=== PATIENT | male | born 1940 | race Caucasian/White ===

== ENCOUNTER 2022-08-23 16:35 | Outpatient (CLI) | payer OTHER, MEDICARE | END 2022-08-23 16:36 | disposition EMS.NT | LOC: EMS 16:35 | DX: Z04.1 Encounter for examination and observation following transport accident (principal) ==

== ENCOUNTER 2022-10-19 10:03 | Emergency (ER) | payer BC, MEDICARE, OTHER ==
--- NOTE | 2022-10-19 10:35 | ED Physician Documentation ---
PD HPI DYSPNEA - Stated complaint Stated Complaint: SOA,COUGHING - Chief complaint Chief Complaint: Resp - History obtained from History obtained from: Patient, Family - History of Present Illness Timing - onset: Today Timing - onset during: Light activity (history of asthma and typically has exac during summer months due to environmental allergies. No recent URI. Has had some wheezing recently. Worse abruptly this AM without obvious provocation.) Timing - details: Abrupt onset, Still present Inciting event(s): No: Out of meds, URI, Immobilization/travel Improved by: No: Inhaler/neb (he was unable to use his MDI due to inability to take breaths. Has MDI without spacer.) Worsened by: Exertion, Coughing Associated symptoms: Cough, Wheezing. No: Fever, Chest pain / discomfort, Bilateral edema Similar symptoms before: Diagnosis (asthma) Recently seen: Not recently seen Review of Systems Constitutional: denies: Fever, Chills, Myalgias Nose: reports: Congestion. denies: Rhinorrhea / runny nose Throat: denies: Sore throat Cardiac: denies: Chest pain / pressure, Palpitations, Pedal edema, Calf pain Respiratory: reports: Dyspnea, Cough, Wheezing GI: denies: Vomiting, Diarrhea Skin: denies: Rash, Lesions Neurologic: reports: Generalized weakness. denies: Near syncope PD PAST MEDICAL HISTORY - Past Medical History Past Medical History: Yes Cardiovascular: Hypertension Respiratory: Asthma GI: GERD : Benign prostate hypertrophy - Past Surgical History Past Surgical History: No - Present Medications Home Medications: Ambulatory Orders Medication Instructions Recorded Confirmed Albuterol Sulfate [Proair 1 - 2 puffs IH Q4HR PRN 10/19/22 10/19/22 Respiclick] Amox/Clav 875/125 [Augmentin] 1 each PO BID #10 tablet 10/19/22 Atenolol [Tenormin] 50 mg PO DAILY 10/19/22 10/19/22 Beclomethasone 80 Mcg [Qvar 80] 1 puffs INH BID 50 Days #8.7 gm 10/19/22 Beclomethasone Dipropionate [Qvar 2 puffs INH BID 10/19/22 10/19/22 Redihaler (40 mcg)] Omeprazole Magnesium 20 mg PO BID 10/19/22 10/19/22 dexAMETHasone [Decadron] 4 mg PO DAILY #5 tablet 10/19/22 - Allergies Allergies/Adverse Reactions: Allergies Allergy/AdvReac Type Severity Reaction Status Date / Time No Known Drug Allergies Allergy Verified 10/19/22 10:14 - Social History Does the pt smoke?: No Smoking Status: Never smoker Does the pt drink ETOH?: No Does the pt have substance abuse?: No PD ED PE NORMAL - Vitals Vital signs reviewed: Yes (initial sats 88% on RA. ) - General General: Alert and oriented X 3, Well developed/nourished, Other (having work of breathing with partial sentence dyspnea. Does not appear tired. ) - HEENT HEENT: Pharynx benign - Neck Neck: Supple, no meningeal sign, No adenopathy - Cardiac Cardiac: RRR, No murmur - Respiratory Respiratory: No: Clear bilaterally (no coarse sounds. Has diffuse wheezing and prolonged expiratory phase. No fine crackles. ) - Abdomen Abdomen: Soft, Non tender - Derm Derm: Normal color, Warm and dry, No rash - Extremities Extremities: No tenderness to palpate, Normal ROM s pain, No edema, No calf tenderness / cord - Neuro Neuro: Alert and oriented X 3, No motor deficit, Normal speech Results - Vitals Vitals: Oxygen O2 Source Room air PD Medical Decision Making - ED course Complexity details: reviewed results (I was going to get chest xray but patient declined, not wanting the radiation exposure. His lungs are clearer after neb and I feel it is okay to not get one. ), re-evaluated patient (His breathing is much improved after nebs x 2. Given asthma exac, will also add oral steroids and antibiotic. ), considered differential, d/w patient Drug Therapy Requiring Monitoring for Toxicity: given nebulizer x 2 without any excess tachycardia. Had improved breathing work and sats. Departure - Departure Disposition: 01 Home, Self Care Clinical Impression: Cough, Dyspnea Exacerbation of asthma Qualifiers: Asthma severity: mild Asthma persistence: intermittent Qualified Code(s): J45.21 - Mild intermittent asthma with (acute) exacerbation Condition: Stable Record reviewed to determine appropriate education?: Yes Prescriptions: Amox/Clav 875/125 [Augmentin] 1 each PO BID #10 tablet dexAMETHasone [Decadron] 4 mg PO DAILY #5 tablet Beclomethasone 80 Mcg [Qvar 80] 1 puffs INH BID 50 Days #8.7 gm Comments: Continue with your albuterol inhaler 2 to 3 puffs 4 times daily regularly for the next week or so. Then to as needed. Also take dexamethasone steroid daily for the next 5 days and after that change to the Qvar inhaler twice daily for the next 1 to 2 months during the "hayfever" time of year. With this exacerbation, there be concern for infection as well so take the Augmentin antibiotic twice daily for 5 more days. I sent your prescriptions to [facility] in [place]. Return to the ER if worsening or needed. Forms: PCP List Discharge Date/Time: 10/19/22 12:29
[2022-10-19] MEDS ORDERED: ALBUTEROL NEB 2.5 MG/3 ML INH STA (10:48)
[2022-10-19] MEDS ORDERED: dexAMETHasone 4 MG TABLET PO STA (10:49)
[2022-10-19] MEDS ORDERED: CETIRIZINE 10 MG TABLET PO STA (10:49)
[2022-10-19] MEDS ORDERED: AMOX/CLAV 875 MG/125 MG TABLET PO STA (11:26)
[2022-10-19] MEDS ORDERED: IPRATROPIUM/ALBUTEROL 3 ML NEB INH STA (11:26)
[2022-10-19 12:31] VITALS: BP 162/72
== END 2022-10-19 12:29 | disposition home or self-care (01) ==
LOC: ED 10:03
DX: J45.21 Mild intermittent asthma with (acute) exacerbation (principal)
CPT/HCPCS: 94640; 94664; 99282; 99284; A9270; J8540

== ENCOUNTER 2022-10-24 14:34 | Emergency (ER) | payer MEDICARE ==
[2022-10-24 15:10] VITALS: BP 130/79; O2SAT 97
--- NOTE | 2022-10-24 17:00 | ED Physician Documentation ---
History of Present Illness - Stated complaint Stated Complaint: RT ARM INJ - Chief complaint Chief Complaint: Ext Problem - History obtained from History obtained from: Patient - History of Present Illness Timing: Last night Pain level max: 4 Pain level now: 4 - Additonal information Additional information: Patient is an 82-year-old male who presents to the emergency department stating that he injured his right arm last night, he was in his kitchen when he tripped and fell causing a large skin tear along the dorsum of the forearm. He cleansed the wound, placed mupirocin ointment and covered it with nonstick bandages. Came in today for evaluation. Tetanus shot is up-to-date. No numbness or tingling. No pain. Nothing makes it better or worse. Review of Systems Constitutional: denies: Fever Musculoskeletal: denies: Neck pain, Back pain Neurologic: denies: Focal weakness, Numbness, Headache, Head injury PD PAST MEDICAL HISTORY - Past Medical History Cardiovascular: Hypertension Respiratory: Asthma GI: GERD : Benign prostate hypertrophy - Past Surgical History Past Surgical History: No - Present Medications Home Medications: Ambulatory Orders Medication Instructions Recorded Confirmed Albuterol Sulfate [Proair 1 - 2 puffs IH Q4HR PRN 10/19/22 10/19/22 Respiclick] Amox/Clav 875/125 [Augmentin] 1 each PO BID #10 tablet 10/19/22 Atenolol [Tenormin] 50 mg PO DAILY 10/19/22 10/19/22 Beclomethasone 80 Mcg [Qvar 80] 1 puffs INH BID 50 Days #8.7 gm 10/19/22 Beclomethasone Dipropionate [Qvar 2 puffs INH BID 10/19/22 10/19/22 Redihaler (40 mcg)] Omeprazole Magnesium 20 mg PO BID 10/19/22 10/19/22 dexAMETHasone [Decadron] 4 mg PO DAILY #5 tablet 10/19/22 cephALEXin [Keflex] 500 mg PO Q6H #28 cap 10/24/22 - Allergies Allergies/Adverse Reactions: Allergies Allergy/AdvReac Type Severity Reaction Status Date / Time No Known Drug Allergies Allergy Verified 10/24/22 14:54 - Social History Does the pt smoke?: No Smoking Status: Never smoker Does the pt drink ETOH?: No Does the pt have substance abuse?: No PD ED PE NORMAL - Vitals Vital signs reviewed: Yes - General General: Alert and oriented X 3, No acute distress - HEENT HEENT: Moist mucous membranes - Neck Neck: Supple, no meningeal sign - Derm Derm: Warm and dry - Extremities Extremities: Other (There is a large skin tear to the dorsum of the right forearm from the wrist all the way to the elbow. Most of it is about a 2 cm wide strip. Neurovascularly intact. No bony tenderness. No deformity.) - Neuro Neuro: Alert and oriented X 3 - Psych Psych: Normal mood, Normal affect Results - Vitals Vitals: Vital Signs - 24 hr 10/24/22 14:54 Temperature 36.5 C Heart Rate 60 Respiratory 16 Rate Blood Pressure 130/79 O2 Saturation 97 Oxygen O2 Source Room air PD Medical Decision Making - ED course Complexity details: considered differential, d/w patient ED course: Patient with a large skin tear to the right forearm. Mepitel was placed over the wound and the wound was wrappedwith kerlix. We will have him follow-up closely with his PCP and follow-up with his doctor for further care as well as likely needing a referral to wound care. Tetanus up-to-date. Patient counseled regarding signs and symptoms for which I believe and urgent re-evaluation would be necessary. Patient with good understanding of and agreement to plan and is comfortable going home at this time This document was made in part using voice recognition software. While efforts are made to proofread this document, sound alike and grammatical errors may occur. Departure - Departure Disposition: 01 Home, Self Care Clinical Impression: Skin avulsion Condition: Good Instructions: ED Wound Care Follow-Up: your,doctor in 1 week [Other] Prescriptions: cephALEXin [Keflex] 500 mg PO Q6H #28 cap Comments: It is likely that this wound will need ongoing wound care. You can ask your primary care provider for referral to wound care either at the hospital here or to [facility] for wound care. Your prescriptions were sent to [facility] in [place]. Please return if you worsen. Leave the base layer, the Mepitel, in place for at least 10 days. Forms: PCP List Discharge Date/Time: 10/24/22 17:02
== END 2022-10-24 17:02 | disposition home or self-care (01) ==
LOC: ED 14:34
DX: S51.811A Laceration without foreign body of right forearm, initial encounter (principal); W01.10XA Fall on same level from slipping, tripping and stumbling with subsequent striking against unspecified object, initial encounter; Y92.000 Kitchen of unspecified non-institutional (private) residence as the place of occurrence of the external cause; I10 Essential (primary) hypertension; Z79.899 Other long term (current) drug therapy
CPT/HCPCS: 99282; 99283

== ENCOUNTER 2023-09-09 08:44 | Emergency (ER) | payer MEDICARE, OTHER ==
[2023-09-09] MEDS: IPRATROPIUM/ALBUTEROL 3 ML NEB INH STA (11:22)
--- NOTE | 2023-09-09 11:32 | XRAY Report ---
PROCEDURE: Chest 1V INDICATIONS: sob TECHNIQUE: One view of the chest was acquired. COMPARISON: None. FINDINGS: Surgical changes and devices: None. Lungs and pleura: No pleural effusions or pneumothorax. Lungs are clear. Mediastinum: Mediastinal contours appear normal. Heart size is normal. Bones and chest wall: No suspicious bony lesions. Overlying soft tissues appear unremarkable. IMPRESSION: No acute cardiopulmonary process. Reviewed by: Bella Dawson MD, PhD on 09/09/2023 10:31 AM AFSANEH Approved by: Bella Dawson MD, PhD on 09/09/2023 10:31 AM AFSANEH Station ID: [id number]
[2023-09-09 12:16] LABS: B. PARAPERTUSSIS- RESP PCR PAN NOT DETECTED; B. PERTUSSIS- RESP PCR PANEL NOT DETECTED; C. PNEUMONIAE- RESP PCR PANEL NOT DETECTED; CORONAVIRUS 229E-RESP PCR NOT DETECTED; CORONAVIRUS HKU1-RESP PCR NOT DETECTED; CORONAVIRUS NL63-RESP PCR NOT DETECTED; CORONAVIRUS OC43-RESP PCR NOT DETECTED; HUMAN METAPNEUMOVIRUS NOT DETECTED; INFLUENZA A- RESP PCR PANEL NOT DETECTED; INFLUENZA B - RESP PCR PANEL NOT DETECTED; M. PNEUMONIAE- RESP PCR PANEL NOT DETECTED; PARAINFLUENZA VIRUS 1 NOT DETECTED; PARAINFLUENZA VIRUS 2 NOT DETECTED; PARAINFLUENZA VIRUS 3 NOT DETECTED; PARAINFLUENZA VIRUS 4 NOT DETECTED; RHINOVIRUS/ENTEROVIRUS NOT DETECTED; RSV- RESP PCR PANEL NOT DETECTED; SARS-CoV-2 -RESP PCR PANEL NOT DETECTED
[2023-09-09] MEDS: predniSONE 20 MG TABLET PO STA (12:27)
--- NOTE | 2023-09-09 12:35 | ED Physician Documentation ---
PD HPI DYSPNEA - Stated complaint Stated Complaint: SOA - Chief complaint Chief Complaint: Resp - History obtained from History obtained from: Patient - Additional information Additional information: Patient comes to the emergency department chief complaint of shortness of breath over the last couple of days. He has a history of asthma and felt like his asthma was acting up. He has tried taking his nebulizer treatments at home which he does not feel have been all that helpful. He denies any fevers or chills. No productive cough. No nausea or vomiting. No chest pain or shortness of breath. He has had a cardiology evaluation before and told his heart is in good condition. He denies any new edema in his lower legs.Dates he just had blood work done with his primary doctor and that his liver enzymes were elevated and he had some other issues but his doctor is already handling those. PD PAST MEDICAL HISTORY - Past Medical History Cardiovascular: Hypertension Respiratory: Asthma GI: GERD : Benign prostate hypertrophy - Past Surgical History Past Surgical History: No - Present Medications Home Medications: Ambulatory Orders Medication Instructions Recorded Confirmed Albuterol Sulfate [Proair 1 - 2 puffs IH Q4HR PRN 10/19/22 09/09/23 Respiclick] Atenolol [Tenormin] 50 mg PO DAILY 10/19/22 09/09/23 predniSONE [Deltasone] 10 mg PO [id number] #42 tab 09/09/23 - Allergies Allergies/Adverse Reactions: Allergies Allergy/AdvReac Type Severity Reaction Status Date / Time No Known Drug Allergies Allergy Verified 09/09/23 09:28 - Social History Does the pt smoke?: No Smoking Status: Never smoker Does the pt drink ETOH?: No Does the pt have substance abuse?: No PD ED PE NORMAL - Vitals Vital signs reviewed: Yes - General General: Alert and oriented X 3, No acute distress, Well developed/nourished, Other (Very well-appearing. Smiling and talking.) - HEENT HEENT: Atraumatic, EOMI, Moist mucous membranes - Neck Neck: Supple, no meningeal sign - Cardiac Cardiac: RRR, No murmur, Strong equal pulses - Respiratory Respiratory: No respiratory distress, Clear bilaterally, Other (Diminished breath sounds bilateral lower thirds of lung blanco.) - Abdomen Abdomen: Soft, Non tender, Non distended - Derm Derm: Normal color, Warm and dry, No rash - Extremities Extremities: No deformity, No edema, No calf tenderness / cord - Neuro Neuro: Other (Alert, grossly intact.) - Psych Psych: Normal mood, Normal affect Results - Vitals Vitals: Vital Signs - 24 hr 09/09/23 09/09/23 09/09/23 08:50 10:56 11:28 Temperature 36.5 C Heart Rate 60 45 L 56 L Respiratory 30 H 14 16 Rate Blood Pressure 161/82 H 144/90 H O2 Saturation 100 100 09/09/23 13:00 Temperature Heart Rate 50 L Respiratory 16 Rate Blood Pressure 148/95 H O2 Saturation 99 Oxygen O2 Source Room air - EKG (time done) 1219 EKG releavant findings:: EKG personally interpreted by author of this note. Relevant findings are: Rate: Rate (enter#) Rhythm: Sinus bradycardia [place]: Normal Intervals: Normal AL QRS: Normal Ischemia: Normal ST segments Compare to prior EKG: Changed from prior EKG Computer interpretation: Agree with computer (Improved quality from EKG done about an hour prior.) - Labs Labs: Laboratory Tests 09/09/23 11:17 Nasal Adenovirus (PCR) NOT DETECTED Nasal B. parapertussis DNA (PCR) NOT DETECTED Nasal Coronavir 229E PCR NOT DETECTED Nasal Coronavir HKU1 PCR NOT DETECTED Nasal Coronavir NL63 PCR NOT DETECTED Nasal Coronavir OC43 PCR NOT DETECTED Nasal Enterovir/Rhinovir PCR NOT DETECTED Nasal Influenza B PCR NOT DETECTED Nasal Influenza A PCR NOT DETECTED Nasal Parainfluen 1 PCR NOT DETECTED Nasal Parainfluen 2 PCR NOT DETECTED Nasal Parainfluen 3 PCR NOT DETECTED Nasal Parainfluen 4 PCR NOT DETECTED Nasal RSV (PCR) NOT DETECTED Nasal B.pertussis DNA PCR NOT DETECTED Nasal C.pneumoniae (PCR) NOT DETECTED Tyree Human Metapneumo PCR NOT DETECTED Nasal M.pneumoniae (PCR) NOT DETECTED Nasal SARS-CoV-2 (PCR) NOT DETECTED - Rads (name of study) Chest x-ray Relevant Findings:: Final report received, See rad report (Negative) PD Medical Decision Making - ED course Complexity details: reviewed old records, reviewed results, re-evaluated patient, considered differential, d/w patient ED course: Patient overall is fairly well-appearing in the emergency department. His chest x-ray was negative and his respiratory PCR panel was also negative. He had no edema in his lower extremities and his EKG showed sinus bradycardia after initially having an EKG with a lot of artifact that was said to be either A-fib or complete AV block. This was not concordant with the reading on the monitoring analyst which appeared to be a simple sinus bradycardia, so the EKG was repeated and was concordant with the monitoring analyst. The patient was found to be feeling better after a dose of steroids and a DuoNeb. He felt ready to go home. We have discussed home management of the symptoms as well as the usual indications for follow-up and return. Departure - Departure Disposition: , Self Care Clinical Impression: Asthma exacerbation Qualifiers: Asthma severity: mild Asthma persistence: intermittent Qualified Code(s): J45.21 - Mild intermittent asthma with (acute) exacerbation Dyspnea Qualifiers: Dyspnea type: unspecified Qualified Code(s): R06.00 - Dyspnea, unspecified Condition: Stable Instructions: Asthma Dc Prescriptions: predniSONE [Deltasone] 10 mg PO [id number] #42 tab Comments: Your x-ray and EKG look good. You do not have any positive findings on your viral panel. Most likely, your asthma has been acting up a bit. Your lungs actually sounded fairly good on examination and most likely the nebulizer treatment that you took prior to coming had taken some effect. We did also give you a dose of steroid. Your oxygen has been very good on room air at 97% and you are stable for discharge home. You should follow-up with your primary doctor for further concerns. If you become extremely short of breath or develop severe chest pain you should return to the emergency department. Forms: PCP List
[2023-09-09 13:22] VITALS: BP 140/88; O2SAT 100
== END 2023-09-09 13:29 | disposition home or self-care (01) ==
LOC: ED 08:44
DX: J45.21 Mild intermittent asthma with (acute) exacerbation (principal); R00.1 Bradycardia, unspecified; Z20.818 Contact with and (suspected) exposure to other bacterial communicable diseases; Z20.822 Contact with and (suspected) exposure to COVID-19; Z20.828 Contact with and (suspected) exposure to other viral communicable diseases
CPT/HCPCS: 71045; 87633; 93005; 94640; 99284; J7512

== ENCOUNTER 2023-11-30 13:12 | Emergency (ER) | payer MEDICARE, OTHER ==
--- NOTE | 2023-11-30 13:42 | ED Physician Documentation ---
History of Present Illness - Stated complaint Stated Complaint: SOA - Chief complaint Chief Complaint: Resp - Additonal information Additional information: Patient is an 83-year-old male presenting to the emergency department with past medical history of acute asthma exasperation. Patient presents with shortness of breath symptoms worsened last night and into this morning. He feels he tried his albuterol inhaler twice without relief and once this morning. He denies any fevers no worsening cough no chest pain or lower leg swelling according to the patient. He denies any dizziness or lightheadedness associated with his symptoms. Patient notes he has chronic history of asthma and has symptoms similar to his asthma exasperation. He notes he was here a few months ago for similar symptoms. PD PAST MEDICAL HISTORY - Past Medical History Past Medical History: Yes Cardiovascular: Hypertension Respiratory: Asthma GI: GERD : Benign prostate hypertrophy - Past Surgical History Past Surgical History: No - Present Medications Home Medications: Ambulatory Orders Medication Instructions Recorded Confirmed Albuterol Sulfate [Proair 1 - 2 puffs IH Q4HR PRN 10/19/22 09/09/23 Respiclick] atenoloL [Tenormin] 50 mg PO DAILY 10/19/22 09/09/23 predniSONE [Deltasone] 10 mg PO [id number] #42 tab 09/09/23 Albuterol 2.5 mg INH Q4H PRN #30 ml 11/30/23 predniSONE [Deltasone] 40 mg PO DAILY 5 Days #10 tablet 11/30/23 - Allergies Allergies/Adverse Reactions: Allergies Allergy/AdvReac Type Severity Reaction Status Date / Time No Known Drug Allergies Allergy Verified 11/30/23 13:17 - Social History Does the pt smoke?: No Smoking Status: Never smoker Does the pt drink ETOH?: No Does the pt have substance abuse?: No - Immunizations Immunizations are current?: Yes PD ED PE NORMAL - Vitals Vital signs reviewed: Yes - General General: Alert and oriented X 3 - HEENT HEENT: Atraumatic - Neck Neck: Supple, no meningeal sign - Cardiac Cardiac: RRR, No murmur, No gallop, No rub - Respiratory Respiratory: Other (Mild expiratory wheeze on auscultation of the lungs however patient speaking in full sentences is saturating well on room air no rhonchi or rales) - Abdomen Abdomen: Normal bowel sounds, Soft, Non tender, Non distended - Derm Derm: Normal color - Extremities Extremities: No edema - Neuro Neuro: Alert and oriented X 3 Eye Opening: Spontaneous Motor: Obeys Commands Verbal: Oriented GCS Score: 15 - Psych Psych: Normal mood, Normal affect Results - Vitals Vitals: Oxygen O2 Source Room air - Labs Labs: Laboratory Tests 11/30/23 11/30/23 13:58 13:58 WBC 9.9 RBC 4.84 Hgb 14.3 Hct 42.3 MCV 87.4 MCH 29.5 MCHC 33.8 RDW 12.3 Plt Count 215 MPV 9.7 Neut # (Auto) 6.7 H Lymph # (Auto) 2.1 [place] # (Auto) 0.5 Eos # (Auto) 0.6 Baso # (Auto) 0.1 Absolute Nucleated RBC 0.00 Nucleated RBC % 0.0 Sodium 135 Potassium 4.3 Chloride 99 L Carbon Dioxide 30 Anion Gap 6.0 BUN 15 Creatinine 0.9 Estimated GFR (MDRD) 80 L Glucose 100 Calcium 9.5 Magnesium 1.8 Total Bilirubin 0.6 AST 14 ALT 12 Alkaline Phosphatase 91 Troponin I High Sens 4.6 Total Protein 6.6 Albumin 4.1 Globulin 2.5 Albumin/Globulin Ratio 1.6 PD Medical Decision Making - ED course Complexity details: reviewed old records, reviewed results ED course: Patient is an 83-year-old male presenting to the emergency department with shortness of breath. Patient has past medical history of asthma and tried his inhaler last night when it felt his symptoms were worsening. Patient notes he had no success and decided to come to the emergency department today due to persistent shortness of breath. He notes he has been wheezing but denies any productive cough no hemoptysis. No lower leg swelling or chest pain associated with his symptoms. Vitals are stable here in the emergency department patient saturating well on room air no acute distress speaking in full sentences. Pulses intact in upper and lower extremities. No lower leg swelling. Normal cardiac sounds and mild expiratory wheeze noted on auscultation of the lungs. Chest x-ray shows no acute cardiopulmonary process here in emergency department. Basic labs were obtained given patient's symptoms came on suddenly last night. However no elevation in troponin CBC and CMP are unremarkable no electrolyte abnormalities or significant leukocytosis. No signs of anemia to explain patient's shortness of breath. He received steroids and breathing treatment here in emergency department with mild improvement. Repeat breathing treatment given after about 15 minutes and patient feeling significantly better. Auscultation of the lungs shows clear breath sounds patient feels safe to go home. He was given albuterol inhaler refill and course of oral steroids to help his symptoms at home. Patient instructed to return with any doctor of cough fevers chills chest pain or shortness of breath. Patient understands and is agreeable with this plan. Departure - Departure Disposition: Home, Self Care Clinical Impression: Acute asthma exacerbation, Asthma Condition: Good Instructions: Asthma Dc, ALBUTEROL Solution for ABT Prescriptions: Albuterol 2.5 mg INH Q4H PRN #30 ml PRN Reason: Wheezing predniSONE [Deltasone] 40 mg PO DAILY 5 Days #10 tablet Comments: You were seen here in the emergency department with your shortness of breath symptoms most likely secondary to acute asthma exasperation and sent new inhalers with nebulizer solution and you can belt picker the nebulizer [id number]. If you have any chest pain shortness of breath persistent wheezing return to the emergency department. Please take steroids as prescribed follow-up with your PCP in the outpatient setting. I have no findings of pneumonia no antibiotics today Forms: PCP List Discharge Date/Time: 11/30/23 16:15
[2023-11-30] MEDS: predniSONE 20 MG TABLET PO STA (14:04)
[2023-11-30 14:06] LABS: BASOPHILS # (AUTO) 0.1 10^3/uL (0.0-0.1); BASOPHILS % (AUTO) 0.8 %; EOSINOPHILS # (AUTO) 0.6 10^3/uL (0.0-0.7); EOSINOPHILS % (AUTO) 5.9 %; HCT - HEMATOCRIT 42.3 % (42.0-52.0); HGB - HEMOGLOBIN 14.3 g/dL (14.0-18.0); LYMPHOCYTES # (AUTO) 2.1 10^3/uL (1.5-3.5); LYMPHOCYTES % (AUTO) 20.7 %; MEAN CORPUSCULAR HEMOGLOBIN 29.5 pg (27.0-31.0); MEAN CORPUSCULAR HGB CONC 33.8 g/dL (32.0-36.0); MEAN CORPUSCULAR VOLUME 87.4 fL (80.0-94.0); MEAN PLATELET VOLUME 9.7 fL (7.4-11.4); MONOCYTES # (AUTO) 0.5 10^3/uL (0.0-1.0); MONOCYTES % (AUTO) 5.2 %; NEUTROPHILS # (AUTO) 6.7 10^3/uL (1.5-6.6); NEUTROPHILS % (AUTO) 67.1 %; PLT - PLATELET COUNT 215 10^3/uL (130-450); RED BLOOD COUNT 4.84 10^6/uL (4.70-6.10); RED CELL DISTRIBUTION WIDTH 12.3 % (12.0-15.0); WHITE BLOOD COUNT 9.9 x10^3/uL (4.8-10.8)
[2023-11-30] MEDS: IPRATROPIUM/ALBUTEROL 3 ML NEB INH STA ×2 (14:09→14:59)
[2023-11-30 14:23] LABS: ALBUMIN 4.1 g/dL (3.2-5.5); ALBUMIN/GLOBULIN RATIO 1.6 (1.0-2.2); BILIRUBIN,TOTAL 0.6 mg/dL (0.2-1.0); CALCIUM 9.5 mg/dL (8.5-10.3); CREATININE 0.9 mg/dL (0.6-1.3); MAGNESIUM 1.8 mg/dL (1.7-2.3); POTASSIUM 4.3 mmol/L (3.5-4.5); TOTAL PROTEIN 6.6 g/dL (6.4-8.9)
[2023-11-30 14:26] LABS: TROPONIN I HIGH SENSITIVITY 4.6 ng/L (2.3-19.7)
--- NOTE | 2023-11-30 14:50 | XRAY Report ---
PROCEDURE: Chest 2V INDICATIONS: sob TECHNIQUE: 2 views of the chest were acquired. COMPARISON: 09/09/2023. FINDINGS: Surgical changes and devices: None. Lungs and pleura: No pleural effusions or pneumothorax. Lungs are clear. Mediastinum: Mediastinal contours appear normal. Heart size is normal. Bones and chest wall: No suspicious bony lesions. Overlying soft tissues appear unremarkable. IMPRESSION: No acute cardiopulmonary process. Reviewed by: Niraj Lu MD on 11/30/2023 2:49 PM PDT Approved by: Niraj Lu MD on 11/30/2023 2:49 PM PDT Station ID: [id number]
[2023-11-30 16:22] VITALS: BP 126/85; O2SAT 95
== END 2023-11-30 16:15 | disposition home or self-care (01) ==
LOC: ED 13:12
DX: J45.901 Unspecified asthma with (acute) exacerbation (principal); I10 Essential (primary) hypertension
CPT/HCPCS: 36415; 71046; 80053; 83735; 84484; 85025; 93005; 94640; 94664; 99284; J7512